=== PATIENT | female | born 1945 | race Caucasian/White ===

== ENCOUNTER → 2016-03-02 | Outpatient (CLI) | payer MEDICARE ==
--- NOTE | 2016-03-02 16:27 | US ---
EXAMINATION TYPE: US kidneys/renal and bladder DATE OF EXAM: 03/02/2016 3:44 PM COMPARISON: NONE CLINICAL HISTORY: Chronic kidney disease N18.9 EXAM MEASUREMENTS: Right Kidney: 9.7 x 5.0 x 4.9 cm Left Kidney: 9.0 x 5.5 x 4.1 cm ANATOMY: TECHNOLOGIST IMPRESSION: DIfficult to penetrate due to large pt body habitus Right Kidney: No evidence of hydro, visualized portions appeared wnl Left Kidney: No evidence of hydro, difficult to visualize Bladder: Visualized portions appeared wnl, pt unable to fill bladder very full Bilateral Jets seen: No There is no evidence for hydronephrosis at this point in time. No nephrolithiasis is seen. No omar s are identified. The urinary bladder is anechoic. Exam is limited. Cortical medullary differentiation is maintained on the right. Bladder is not disten ded. Left kidney not well seen, there may be loss of cortical medullary differentiation IMPRESSION: Limited exam. Hydronephrosis is not evident. Normal Values: Renal Length = 9 - 12cm Bladder Wall: < 0.3cm
== END | disposition home or self-care (01) ==
LOC: RADUSWWP 15:33
PROVIDERS: ATTEND Family Medicine
DX: N18.9 Chronic kidney disease, unspecified (principal)
CPT/HCPCS: 76770

== ENCOUNTER → 2017-06-07 | Outpatient (CLI) | payer MEDICARE ==
--- NOTE | 2017-06-09 08:03 | MM ---
Reason for exam: screening (asymptomatic). Last mammogram was performed 2 years and 8 months ago. History: Patient is postmenopausal and is nulliparous. Family history of breast cancer in paternal grandmother. Physical Findings: A clinical breast exam by your physician is recommended on an annual basis and results should be correlated with mammographic findings. MG 3D Screening Mammo W/Cad Bilateral CC and MLO view(s) were taken. Prior study comparison: October 02, 2014, bilateral MG screening mammo w CAD. August 27, 2013, bilateral MG screening mammo w CAD. There are scattered fibroglandular densities. There is chronic nodularity in the right breast. A prominent low right axillary lymph node measures 1.8 x 1.1cm and is either new or was previously not included in the field of view. The latter is favored. 6 month follow up is recommended. ASSESSMENT: Probably benign, BI-RAD 3 RECOMMENDATION: Follow-up diagnostic mammogram of the right breast in 6 months. (include posterior tissues)
== END | disposition home or self-care (01) ==
LOC: RADMAMWWP 10:37
PROVIDERS: ATTEND Family Medicine
DX: Z12.31 Encounter for screening mammogram for malignant neoplasm of breast (principal)
CPT/HCPCS: 77063; 77067

== ENCOUNTER → 2018-09-20 | Outpatient (CLI) | payer MEDICARE ==
--- NOTE | 2018-09-21 07:33 | US ---
EXAMINATION TYPE: US kidneys/renal and bladder DATE OF EXAM: 09/20/2018 COMPARISON: 03/02/2016 CLINICAL HISTORY: N18.3 CKD. CKD, no pain EXAM MEASUREMENTS: Right Kidney: 10.9 x 5.5 x 4.4 cm Left Kidney: 9.1 x 4.3 x 4.9 cm Limited visualization due to patient body habitus Patient unable to tolerate bladder images Right Kidney: No hydronephrosis or masses seen, cortical thinning Left Kidney: No hydronephrosis or masses seen, appears smaller in size compared to contralateral imag e, cortical thinning Bladder: mildly distended Bilateral Jets not seen There is no evidence for hydronephrosis at this point in time. No nephrolithiasis is seen. No omar s are identified. The urinary bladder is anechoic. Bilateral ureteral jets are not seen. IMPRESSION: Limited exam secondary to patient body habitus. No gross evidence of hydronephrosis nor nephrolithias is. Bilateral cortical renal thinning, sequela of medical renal disease.
== END | disposition home or self-care (01) ==
LOC: RADUSWWP 15:25
PROVIDERS: ATTEND Family Medicine
DX: N18.3 Chronic kidney disease, stage 3 (moderate) (principal)
CPT/HCPCS: 76770

== ENCOUNTER → 2019-01-02 | Outpatient (CLI) | payer MEDICARE ==
--- NOTE | 2019-01-02 12:07 | MM ---
Reason for exam: additional evaluation requested from prior study. Last mammogram was performed 1 year and 7 months ago. History: Patient is postmenopausal and is nulliparous. Family history of breast cancer in paternal grandmother. Physical Findings: Nurse did not find any significant physical abnormalities on exam. MG 3D Diag Mammo W/Cad MELANY Bilateral CC, MLO, and XCCL view(s) were taken. Prior study comparison: June 07, 2017, bilateral MG 3d screening mammo w/cad. October 02, 2014, bilateral MG screening mammo w CAD. There are scattered fibroglandular densities. Benign appearing bilateral calcifications. There is chronic nodularity bilaterally. These results were verbally communicated with the patient and result sheet given to the patient on 01/02/19. ASSESSMENT: Benign, BI-RAD 2 RECOMMENDATION: Routine screening mammogram of both breasts in 1 year.
== END | disposition home or self-care (01) ==
LOC: RADMAMWWP 10:44
PROVIDERS: ATTEND Family Medicine
DX: R92.8 Other abnormal and inconclusive findings on diagnostic imaging of breast (principal)
CPT/HCPCS: 77066; G0279; 77062